=== PATIENT | female | born 1970 ===

== ENCOUNTER 2017-04-03 07:30 | Inpatient (IN) | payer OTHER ==
[~2017-04-03] VITALS: Ht 157.5 cm; Wt 97.5 kg
[2017-07-07] VITALS (14 sets, daily range): BP systolic 139–188; BP diastolic 90–117
[2017-07-07] MEDS ORDERED: ALPRAZOLAM0.5 MG PO (06:43)
[2017-07-07] MEDS ORDERED: TYLENOL325 MG ORAL (06:43)
[2017-07-07] MEDS ORDERED: ceFAZolin sod 2 GM in D5W 110 ML IVPB ONE (07:00)
[2017-07-07] MEDS ORDERED: Thrombin 5000 units TOPIC ONE (07:09)
[2017-07-07] MEDS ORDERED: EPINEPHrine 1mg/1ml Amp ONE (07:09)
[2017-07-07] MEDS ORDERED: Bacitracin 50000 Units Vial ONE (07:10)
[2017-07-07] MEDS ORDERED: Bupivacaine 0.5% Inj 30 ml vial INJ ONE (07:10)
[2017-07-07] MEDS ORDERED: Succinylcholine 20mg/ml 10ml vial ONE (07:15)
[2017-07-07] MEDS ORDERED: Zemuron 50mg/5ml Inj IV ONE (07:15)
[2017-07-07] MEDS ORDERED: Midazolam 2mg/2ml Inj ONE (07:20)
[2017-07-07] MEDS ORDERED: fentaNYL 100 mcg/2 mL IV ONE (07:22)
[2017-07-07] MEDS ORDERED: Sterile Water Irrig 1000ml IRRIG ONE (07:30)
[2017-07-07] MEDS ORDERED: Propofol 1,000mg/ 100ml btl IV ONE (07:30)
[2017-07-07] MEDS ORDERED: Naloxone 0.4mg/ml Inj IVP PRN (07:30)
[2017-07-07] MEDS ORDERED: LR 1000ml ONE (07:30)
--- NOTE | 2017-07-07 07:30 | Pre-Procedure Note/Attestation ---
Pre-Procedure Note/Attestation Complete Prior to Procedure Procedure Narrative: ACDF C56 Indications for Procedure Pre-Operative Diagnosis: CERVICAL HNP WITH RADICULOPATHY Attestation I attest that I discussed the nature of the procedure; its benefits; risks and complications; and alternatives (and the risks and benefits of such alternatives ), prior to the procedure, with the patient (or the patient's legal agency sales representative). I attest that, if there was a reasonable possibility of needing a blood transfusion, the patient (or the patient's legal agency sales representative) was given the [facility] standardized written summary, pursuant to the [place] Blood Safety Act ([place] Health and Safety Code # 1645, as amended). I attest that I re-evaluated the patient just prior to the surgery and that there has been no change in the patient's H&P, except as documented below: MAGO MONTESINOS July 07, 2017 07:30
[2017-07-07] MEDS ORDERED: Labetalol 5mg/ml 20ml vial IV ONE (07:50)
[2017-07-07] MEDS ORDERED: LR 1000ml 1,000 ML IVLG SCH (08:46)
--- NOTE | 2017-07-07 08:59 | Anethesia Preoperative Eval ---
Anesthesia Pre-op PMH/ROS General Date of Evaluation: July 07, 2017 Time of Evaluation: 07:20 Anesthesiologist: Carolyn ASA Score: ASA 3 Mallampati Score Class I : Soft palate, uvula, fauces, pillars visible Class II: Soft palate, uvula, fauces visible Class III: Soft palate, base of uvula visible Class IV: Only hard plate visible Mallampati Classification: Class IV Surgeon: Ha Diagnosis: Pain Surgical Procedure: ACDF C5-6 Family History: no anesthesia problems Allergies: Coded Allergies: No Known Allergies (Unverified , 07/03/17) Medications: see eMAR Past Medical History Cardiovascular: Denies: HTN, CAD, CA, valve dz, arrhythmia, other Pulmonary: Denies: asthma, COPD, SHRUTHI, other Gastrointestinal/Genitourinary: Denies: GERD, CRI, ESRD, other Neurologic/Psychiatric: Denies: dementia, CVA, depression/anxiety, TIA, other Endocrine: Denies: DM, hypothyroidism, steroids, other HEENT: Denies: cataract (L), cataract (R), glaucoma, [place] (L), [place] (R), other Hematology/Immune: Denies: anemia, DVT, bleeding disorder, other Musculoskeletal/Integumentary: Denies: OA, RA, DJD, DDD, edema, other Other: obesity PMH Narrative: Obesity PSxH Narrative: AP, Cholecystectomy Anesthesia Pre-op Phys. Exam Physician Exam Last Vital Signs Date Time Temp Pulse Resp B/P (MAP) Pulse Ox O2 Delivery O2 Flow Rate FiO2 07/07/17 06:45 98.0 95 20 188/117 100 Room Air 98.0 Constitutional: NAD Neurologic: CN 2-12 intact Cardiovascular: RRR, no M/R/G Respiratory: CTA Gastrointestinal: S/NT/ND Airway Exam Mallampati Score: Class III MO: full Teeth: intact Anesthesia Pre-op A/P Labs WNL Urine Test Test 07/07/17 05:40 Urine HCG, Qualitative Negative (NEGATIVE) Studies Pre-op Studies: EKG Risk Assessment & Plan Assessment: Obese female for ACDF Plan: GETA, [place] intubation, SedLine Status Change Before Surgery: No Pre-Antibiotics Drug: Ancef Given Within 1 Hr of Incision: Yes Time Given: 08:00 Live Leon MD July 07, 2017 08:59
[2017-07-07] MEDS ORDERED: Morphine Sulfate 4mg/ml Inj IM PRN (09:00)
[2017-07-07] MEDS ORDERED: DiphenhydrAMINE 50mg/ml Inj IVP PRN (09:00)
[2017-07-07] MEDS ORDERED: LORazepam Inj 2mg/ml 1ml IV PRN (09:00)
[2017-07-07] MEDS ORDERED: Meperidine 50mg/ml Inj(FOR RIGORS ONLY) IVP ONE (09:00)
--- NOTE | 2017-07-07 09:00 | Immediate Post-Op Evaluation ---
Immediate Post-Op Evalulation Immediate Post-Op Evalulation Procedure: ACDF C5-6 Date of Evaluation: July 07, 2017 Time of Evaluation: 10:40 IV Fluids: 1000 Estimated Blood Loss: 25 Urinary Output: 60 Blood Pressure Systolic: 139 Blood Pressure Diastolic: 90 Pulse Rate: 106 Respiratory Rate: 10 O2 Sat by Pulse Oximetry: 99 Temperature (Fahrenheit): 97.0 Pain Score (1-10): 0 Nausea: No Vomiting: No Complications No complication Patient Status: reacts, patent, extubated, none Hydration Status: adequate Drug: Ancef Given Within 1 Hr of Incision: Yes Time Given: 08:00 Live Leon MD July 07, 2017 09:00
--- NOTE | 2017-07-07 09:53 | Brief Operative Note ---
Immediate Post Operative Note Operative Note Pre-op Diagnosis: CERVICAL HNP WITH RADICULOPATHY Procedure: acdf c56 Post-op Diagnosis: same as pre-op Findings: consistent w/pre-op dx studies Surgeon: JAGUAR Senior Research Project Manager: MALCOLM Anesthesiologist: ANABELLE Anesthesia: general Specimen: yes Complications: none Condition: stable Fluids: 900CC Estimated Blood Loss: minimal - 25CC Drains: none Implant(s) used?: Yes MAGO MONTESINOS July 07, 2017 09:53
--- NOTE | 2017-07-07 10:58 | Diagnostic Imaging Report ---
Indication: Neck Pain Findings: 5 Fluoroscopic views of the cervical spine were obtained. Intraoperative imaging during anterior fusion C5-6 demonstrated with discectomy. IMPRESSION: Intraoperative imaging
[2017-07-07] MEDS ORDERED: Morphine Sulfate 4mg/ml Inj IVP PRN (11:00)
[2017-07-07] MEDS ORDERED: HYDROcodone/Acetamin 7.5/325 tab ORAL PRN (13:30)
[2017-07-07] MEDS ORDERED: Norco 5mg/325mg tab ORAL PRN (13:30)
[2017-07-07] MEDS: D5 1/2NS 1,000 ML IV SCH (13:53)
--- NOTE | 2017-07-07 14:53 | History and Physical ---
History of Present Illness General Date patient seen: July 07, 2017 Present Illness HPI 47 year old female with hx of Cervical HNP WITH RADICULOPATHY is admitted for acdf c56. Postoperatively pt is admitted to medical floor for further management. She is awake and comfortable and complaining of sore throat. Allergies: Coded Allergies: No Known Allergies (Unverified , 07/03/17) Medication History Scheduled PRN Acetaminophen (Tylenol), 500 MG ORAL Q6H PRN for Prn Pain/Headache/Temp > 101, ( Reported) Alprazolam* (Xanax*), 0.5 MG PO DAILY PRN for For Anxiety, (Reported) Patient History Healthcare decision maker LAURIE CALLE - BROTHER Resuscitation status Full Code Advanced Directive on File Past Medical/Surgical History Past Medical/Surgical History: (1) Depression (2) Cervical radiculopathy Review of Systems All Other Systems: negative except mentioned in HPI Physical Exam General Appearance: WD/WN, mild distress HEENT: normocephalic, atraumatic Neck: non-tender, normal alignment Respiratory/Chest: chest wall non-tender, lungs clear Breasts: no masses Cardiovascular/Chest: normal peripheral pulses Abdomen: normal bowel sounds Genitourinary/Rectal: normal genital exam Extremities: normal range of motion Last 24 Hour Vital Signs Date Time Temp Pulse Resp B/P (MAP) Pulse Ox O2 Delivery O2 Flow Rate FiO2 07/07/17 12:45 98.7 102 18 146/102 98 Nasal Cannula 3.0 98.7 07/07/17 12:30 98.6 101 18 150/100 98 Nasal Cannula 3.0 98.6 07/07/17 12:14 156/103 07/07/17 12:14 105 18 156/103 98 Nasal Cannula 3.0 07/07/17 12:05 101 17 154/101 98 Nasal Cannula 3.0 07/07/17 11:50 100 17 159/96 97 Nasal Cannula 3.0 07/07/17 11:35 98 20 154/96 99 Nasal Cannula 3.0 07/07/17 11:15 96 20 158/104 99 Nasal Cannula 3.0 07/07/17 11:02 161/111 07/07/17 11:02 96 20 161/111 99 Nasal Cannula 3.0 07/07/17 10:50 101 20 146/105 96 Nasal Cannula 3.0 07/07/17 10:37 104 20 145/98 96 Simple Mask 8.0 07/07/17 10:32 105 20 142/100 96 Simple Mask 8.0 07/07/17 10:31 206.6 106 10 99 07/07/17 10:27 97.0 117 20 139/90 96 Simple Mask 8.0 97.0 07/07/17 06:45 98.0 95 20 188/117 100 Room Air 98.0 Intake and Output 07/06/17 07/07/17 19:00 07:00 # Voids 1 Laboratory Tests Test 07/07/17 05:40 Urine HCG, Qualitative Negative (NEGATIVE) Height (Feet): 5 Height (Inches): 2.00 Weight (Pounds): 215 Medications Current Medications Medications (Trade) Dose Ordered Sig/Jasper Route PRN Reason Start Time Stop Time Status Last Admin Dose Admin Acetaminophen/ Hydrocodone Bitart ([place] 5/325) 1 tab Q3H PRN ORAL pain score 1-3 07/07/17 13:30 07/14/17 13:29 Acetaminophen/ Hydrocodone Bitart ([place] 7.5/325) 1 tab Q3H PRN ORAL pain score 4-6 07/07/17 13:30 07/14/17 13:29 Acetaminophen/ Hydrocodone Bitart ([place] 7.5/325) 2 tab Q3H PRN ORAL pain scale 7-10 07/07/17 13:30 07/14/17 13:29 Cefazolin Sodium 1 gm/Dextrose 110 ml @ 220 mls/hr Q8H IV 07/07/17 16:00 07/08/17 08:29 Dextrose/Sodium Chloride 1,000 ml @ 100 mls/hr Q10H IV 07/07/17 13:30 08/06/17 13:29 07/07/17 13:53 Docusate Sodium (Colace) 100 mg TWICE A DAY ORAL 07/07/17 18:00 08/06/17 17:59 Naloxone HCl (Narcan) 0.1 mg PRN PRN IVP RR<12/min, pt unarousable 07/07/17 07:30 08/06/17 07:29 Assessment/Plan Problem List: (1) Cervical radiculopathy ICD Codes: M54.12 - Radiculopathy, cervical region SNOMED: 28956707 (2) Depression ICD Codes: F32.9 - Major depressive disorder, single episode, unspecified SNOMED: 39053420 Assessment/Plan symptomatic treatment post operative care dvt prophylaxis monitor BP and treat if necessary. Elicia Pavon MD July 07, 2017 14:53
[2017-07-07] MEDS: ceFAZolin sod 1 GM in D5W 110 ML IV SCH (16:25)
[2017-07-07] MEDS: HYDROcodone/Acetamin 7.5/325 tab ORAL PRN ×2 (16:26→21:02)
[2017-07-07] MEDS: Docusate 100mg cap ORAL SCH (17:59)
--- NOTE | 2017-07-07 19:00 | Operative Note - Dictated ---
DATE OF OPERATION: 07/07/2017 PREOPERATIVE DIAGNOSIS: C5-C6 disc protrusion with stenosis and left upper extremity radiculopathy. POSTOPERATIVE DIAGNOSES: C5-C6 disc protrusion with stenosis and left upper extremity radiculopathy. PROCEDURE PERFORMED: 1. Interbody arthrodesis at C5-C6. 2. Anterior cervical instrumentation at C5-C6. 3. Implantation of PEEK interbody device at C5-C6. 4. Arthrodesis at C5-C6 with local autograft and allograft. 5. Intraoperative use of microscope. SURGEON: Mateo Bonner M.D. HOOK AND EYE ATTACHER: Lei Coughlin M.D. ANESTHESIA: General endotracheal anesthesia. ANESTHESIOLOGIST: Live Leon M.D. ESTIMATED BLOOD LOSS: 25 mL. IV ANTIBIOTICS: 2 g of Ancef. COMPLICATIONS: None. BACKGROUND: This is a pleasant female, who failed nonoperative treatment and continued to have pain in the left upper extremity, verified the left C6 radiculopathy. Option for above treatment was given. Risks, alternatives, and benefits were discussed with the patient at length. Risks include, but are not limited to anesthesia complications including , medical complications including liver, kidney, and cardiopulmonary deficits, bleeding, infection, dysphonia, dysphagia, hematoma of the neck, nerve root injury, paralysis, spinal cord injury, CSF leak, dural tear, fracture of the hardware, loosening of the hardware, need for revision, decompression and fusion at adjacent levels, swallowing difficulties, esophageal injury, tracheal injury, recurrent laryngeal nerve injury as well as other complications. The patient understood and wished to proceed. Written and verbal consent was given. OPERATIVE FINDINGS: There is disc height collapse at C5-C6 with disc herniation, spinal cord impingement and foraminal stenosis, and impingement of the exiting C6 nerve roots bilaterally, worse on the left side. DESCRIPTION OF OPERATION: The patient was brought into the operating room supine on a stretcher. Appropriate IV lines were placed by the anesthesiologist. 2 grams of Ancef was administered. The patient was induced and intubated without complication. The patient was placed onto the operating room table. A surgical time-out was called. The neck was placed into neutral alignment. The arms were tucked by the side. All bony prominences were well padded as well as the four extremities. SSEP and neurophysiological monitoring leads were placed and recordings remained stable throughout the case. Preoperative fluoroscopy revealed the planned incision to be over C5-C6. At this point, the neck was prepped and draped in the usual sterile fashion with alcohol, chlorhexidine scrub, and ChloraPrep. The intraoperatively sterilely draped microscope was brought into the field through the skin incision and was used throughout the case until closure. The incision was carried out over the anterior right side of the neck in the crease of the neck. Hemostasis was achieved with bipolar cautery. The platysma was incised in line with the skin incision. Blunt dissection was carried out in the interval between the strap muscles and sternocleidomastoid. Superficial cervical fascia was dissected caudally as well cephalad. Carotid pulse was palpated and it was found to be well lateral to the field of dissection. Deep cervical fascia was encountered. Once the fascia was found, blunt dissection was carried out with Kitt[place] as well as finger dissection. The longus coli was found and subperiosteally dissected. Retractors were set into place. A spinal needle was used to identify the C5-C6 interspace and positively identified via lateral fluoroscopy. Retractors were set into place by the SafeTacMag System. At this point, attention was diverted to the diskectomy. A fresh scalpel was used to incise the anterior anulus and the anterior osteophytes were removed with a #2 Kerrison punch. Once this was accomplished, attention was diverted to the diskectomy. Straight and curved curettes as well as Microsect curettes were used to do a radical diskectomy. Endplate cartilage was removed. Endplate bone was well preserved. At this point, a high-speed drill was used to drill the posterior aspect of the vertebral bodies to the level of the posterior longitudinal ligament. A large piece of the posterior aspect of the vertebra was removed at C5-C6 allowing for complete decompression of the spinal canal. #2 Microsect curettes were used to remove the PLL. With #1 and #2 Kerrison punches, the PLL was removed. Disk herniation, which was impinging on the spinal cord, was removed. A complete foraminal decompression was done. There was significant impingement of the exiting C6 nerve roots, which were thoroughly by the end of the case decompressed and were patent. Copious irrigation was now used in the disk space. Hemostasis was achieved, and at this point, the Spinal Elements trial was used and a 7 lordotic PEEK interbody device was chosen, was packed with local autograft as well as Amanda allograft, and was tamped into place at C5-C6 with excellent recreation of disk height and lordosis. A Peel plate was chosen and with 14 and 12 mm screws was fixed to the anterior surface of the C5 and C6 vertebral bodies. The C5 vertebral body at 14 mm self-drilling screws sat below the locking mechanism and had excellent purchase. The C6 vertebral body had 12 mm self-drilling screws, which also sat beneath the locking mechanism, and AP and lateral fluoroscopy revealed all instrumentation to be in excellent position. All sponge, needle, and instrument counts were correct. Hemostasis was achieved. Now, attention was diverted to closure. Biplanar fluoroscopy revealed instrumentation to be in good position and now attention was diverted to closure, and 3-0 Vicryl sutures used to close the platysma, 3-0 Monocryl sutures were used to close the skin. The subcuticular layer of the skin was closed with Dermabond. Sterile dressing with tape was placed. The patient was extubated and taken to the recovery room in stable condition and found to be neurovascularly intact. Mateo Bonner M.D. DR: PEYTON JOB#: [id number] CC: ANISA
[2017-07-08] VITALS: BP 120/85
[2017-07-08] MEDS: ceFAZolin sod 1 GM in D5W 110 ML IV SCH ×2 (00:26→08:34)
[2017-07-08] MEDS: D5 1/2NS 1,000 ML IV SCH ×2 (00:27→09:30)
[2017-07-08 04:00] VITALS: BP 158/99
[2017-07-08 06:41] VITALS: BP 137/88
[2017-07-08 07:40] VITALS: BP 132/94
[2017-07-08] MEDS: Docusate 100mg cap ORAL SCH (08:36)
[2017-07-08 09:28] VITALS: BP 132/94
--- NOTE | 2017-07-08 09:28 | 48 Hour Post Anesthesia Eval ---
Post Anesthesia Evaluation Procedure: ACDF C5-6 Date of Evaluation: July 08, 2017 Time of Evaluation: 10:20 Blood Pressure Systolic: 132 0: 94 Pulse Rate: 81 Respiratory Rate: 20 Temperature (Fahrenheit): 98.4 O2 Sat by Pulse Oximetry: 96 Airway: patent Nausea: No Vomiting: No If pain is > 6 Comment: 2 Hydration Status: adequate Cardiopulmonary Status: Stable Mental Status/LOC: patient returned to baseline Follow-up Care/Observations: As per surgery Post-Anesthesia Complications: No anesthetic complication Follow-up care needed: N/A Live Leon MD July 08, 2017 09:28
--- NOTE | 2017-07-08 11:22 | Pulmonology Progress Note ---
Assessment/Plan Problems: (1) Cervical radiculopathy (2) Depression Assessment/Plan pain control watch BP prescription for clonidine give to the pt f/u with PMD. Subjective ROS Limited/Unobtainable: No Interval Events: no new complains Allergies: Coded Allergies: No Known Allergies (Unverified , 07/03/17) Objective Last 24 Hour Vital Signs Date Time Temp Pulse Resp B/P (MAP) Pulse Ox O2 Delivery O2 Flow Rate FiO2 07/08/17 09:28 209.1 81 20 96 07/08/17 07:40 98.4 81 20 132/94 98.4 07/08/17 06:41 137/88 07/08/17 06:02 147/99 07/08/17 04:00 158/99 07/08/17 00:00 97.4 82 18 120/85 96 Room Air 97.4 07/07/17 21:48 Nasal Cannula 2.0 28 07/07/17 17:52 160/114 07/07/17 17:44 98.3 102 18 160/114 93 Room Air 98.3 07/07/17 12:45 98.7 102 18 146/102 98 Nasal Cannula 3.0 98.7 07/07/17 12:30 98.6 101 18 150/100 98 Nasal Cannula 3.0 98.6 07/07/17 12:14 156/103 07/07/17 12:14 105 18 156/103 98 Nasal Cannula 3.0 07/07/17 12:05 101 17 154/101 98 Nasal Cannula 3.0 07/07/17 11:50 100 17 159/96 97 Nasal Cannula 3.0 07/07/17 11:35 98 20 154/96 99 Nasal Cannula 3.0 Intake and Output 07/07/17 07/08/17 18:59 06:59 Intake Total 1500 ml 1300 ml Output Total 26 ml Balance 1474 ml 1300 ml Intake Oral 200 ml IV Total 1500 ml 1100 ml Output Urine Total 1 ml Estimated Blood Loss 25 ml # Voids 1 General Appearance: WD/WN HEENT: normocephalic, atraumatic Respiratory/Chest: chest wall non-tender, lungs clear Breasts: no masses Cardiovascular: normal peripheral pulses Abdomen: normal bowel sounds, soft, non tender Genitourinary: normal external genitalia Extremities: no cyanosis Skin: no lesions Neurologic/Psychiatric: therapeutic recreation specialist II-XII grossly normal Current Medications Medications (Trade) Dose Ordered Sig/Jasper Route PRN Reason Start Time Stop Time Status Last Admin Dose Admin Acetaminophen/ Hydrocodone Bitart ([place] 5/325) 1 tab Q3H PRN ORAL pain score 1-3 07/07/17 13:30 07/14/17 13:29 Acetaminophen/ Hydrocodone Bitart ([place] 7.5/325) 1 tab Q3H PRN ORAL pain score 4-6 07/07/17 13:30 07/14/17 13:29 07/07/17 21:02 Acetaminophen/ Hydrocodone Bitart ([place] 7.5/325) 2 tab Q3H PRN ORAL pain scale 7-10 07/07/17 13:30 07/14/17 13:29 Clonidine HCl ([place]ap[place] Tab) 0.1 mg Q6HR PRN SL For High Blood Pressure >160 07/07/17 15:00 08/06/17 14:59 07/08/17 06:02 Docusate Sodium (Colace) 100 mg TWICE A DAY ORAL 07/07/17 18:00 08/06/17 17:59 07/08/17 08:36 Naloxone HCl (Narcan) 0.1 mg PRN PRN IVP RR<12/min, pt unarousable 07/07/17 07:30 08/06/17 07:29 Ondansetron HCl (Zofran) 4 mg Q6H PRN IVP Nausea & Vomiting 07/07/17 15:15 08/06/17 15:14 Elicia Pavon MD July 08, 2017 11:22
[2017-07-08] MEDS ORDERED: CLONIDINE0.1 MG SL (11:27)
[2017-07-08] MEDS ORDERED: NORCO 5-325 TA1 EACH ORAL (11:45)
[2017-07-08] MEDS ORDERED: SOMA350 MG PO (11:46)
[2017-07-08] MEDS ORDERED: D5 1/2NS 1000ml IV ONE (12:19)
--- NOTE | 2017-07-10 12:29 | Discharge Summary ---
Discharge Summary Hospital Course Date of Admission July 07, 2017 at 05:18 Date of Discharge July 08, 2017 at 12:20 Admitting Diagnosis HPI Meghan Luna is a 47 year old female who was admitted on July 07, 2017 at 05:18 for Anterior Cervical Disectgomy Fusion C5-6 Hospital Course [id number] Discharge Discharge Disposition Patient was discharged to Home (01) Anna Spring NP July 10, 2017 12:29
--- NOTE | 2017-07-11 01:15 | Discharge Summary 2 SIG ---
DATE OF ADMISSION: 07/07/2017 DATE OF DISCHARGE: 07/08/2017 DEVELOPMENT SCIENTIST: Elicia Pavon M.D. BRIEF HOSPITAL COURSE: The patient is a 47-year-old female, who was diagnosed with C5-C6 disc protrusion with stenosis and left upper extremity radiculopathy, who had failed non-operative treatment, continued to have pain on the left upper extremity. She was admitted and underwent ACDF on C5-C6. She tolerated procedure well and postoperatively was admitted for postop care and pain management. Vitals were monitored. She was also seen by physical therapy and occupational therapy. Her diet was advanced. She had good pain control and was ambulating well. She was eventually discharged home. FINAL DIAGNOSES: C5-C6 disc protrusion with stenosis and left upper extremity radiculopathy, status post anterior cervical discectomy and fusion C5-C6 (please refer to operative report). DISPOSITION: The patient was discharged home. DISCHARGE MEDICATIONS: Refer to medication list. DISCHARGE INSTRUCTIONS: Follow up in a week. Mateo Bonner M.D. I have been assigned to dictate discharge summary on this account and I was not involved in the patient's management. Anna Spring N.P. DR: GAYATRI JOB#: [id number] CC: ANISA
== END 2017-07-08 12:20 | disposition home or self-care (01) | DRG 473 ==
LOC: SDSOVERFLO 07-07 05:18 → 4E 07-07 13:19 → 3E 07-07 17:34
PROC: 0RG10A0 Fusion of Cervical Vertebral Joint with Interbody Fusion Device, Anterior Approach, Anterior Column, Open Approach (ICD-10-PCS; principal; 2017-07-07 07:30)
PROC: 0RT30ZZ Resection of Cervical Vertebral Disc, Open Approach (ICD-10-PCS; principal; 2017-07-07 07:30)
DX: M50.122 Cervical disc disorder at C5-C6 level with radiculopathy (principal); F32.9 Major depressive disorder, single episode, unspecified; M48.02 Spinal stenosis, cervical region; I10 Essential (primary) hypertension
CPT/HCPCS: 36415; 72040; 76001; 81025; 86850; 86900; 86901; 87081; 94003; 94150; J2250; J2405